=== PATIENT | male | born 1955 | race Two or more races ===

== ENCOUNTER 2024-06-23 01:59 | Emergency (ER) | payer MEDICARE, MEDICAID ==
[~2024-06-23] VITALS: Ht 193 cm; Wt 68.0 kg
[2024-06-23 02:13] VITALS: BP 147/69; PULSE 92; RESP 20; O2SAT 97
--- NOTE | 2024-06-23 02:22 | ED.PDOC ---
History of Present Illness HPI Comments 68 y/o M, with a Hx of lung CA and tobacco cigarette use, presents with c/o abnormal labs, today. Patient is a poor historian and endorses on being referred to come to the ED by his PCP, yesterday, due to recent blood-lab work showing elevated WBC. Patient also states on having to missed his scheduled chemotherapy appointment, yesterday, as well, due to his PCP advising against. He endorses on having no symptoms, currently, at time of initial assessment and evaluation. Chief Complaint: Abnormal LAB's Time Seen by MD: 02:00 Reviewed Notes: Nurses Notes, Medications, Allergies Allergies: Coded Allergies: NO KNOWN ALLERGIES (Unverified , 06/23/24) Information Source: Patient Mode of Arrival: Ambulatory Severity: Moderate Timing: Hours Duration: Since onset Prehospital treatment: None Past Medical History PAST MEDICAL HISTORY: Cancer (lung CA), DM, High Lipids, HTN Past Medical History (Other): hiatal hernia, current Surgical History: Denies all surgeries Family History Family History: Unknown Social History Smoker: Cigarettes Alcohol: Denies ETOH Use Drugs: Denies Drug Use Lives In: Home Hematologic/Lymphatic: reports: others (abnormal labs ) All Other Systems: Reviewed and Negative (negative unless otherwise stated above or in HPI) Physical Exam General Appearance: No Apparent Distress, Normal HEENT: Normal ENT Inspection, Pharynx Normal, TMs Normal Neck: Full Range of Motion, Non-Tender, Normal, Normal Inspection Respiratory: Chest Non-Tender, Lungs Clear, No Accessory Muscle Use, No Respiratory Distress, Normal Breath Sounds Cardiovascular: No Edema, No JVD, No Murmur, No Gallop, Normal Peripheral Pulses, Regular Rate/Rhythm Breast Exam: Deferred Gastrointestinal: No Organomegaly, Non Tender, No Pulsatile Mass, Normal Bowel Sounds, Soft Genitalia: Deferred Pelvic: Deferred Rectal: Deferred Extremities: No calf tenderness, Normal capillary refill, Normal inspection, Normal range of motion, Non-tender, No pedal edema Musculoskeletal : Apperance: Normal Neurologic: Alert, hemodialysis patient care specialist II-XII nml as Tested, No Motor Deficits, Normal Affect, Normal Mood, No Sensory Deficits Cerebellar Function: Normal Reflexes: Normal Skin: Dry, Normal Color, Warm Lymphatic: No Adenopathy Was a procedure done? Was a procedure done?: No Differential Dx Considerations may include: leukocytosis, abnormal labs X-Ray, Labs, Meds, VS Vital Signs Date Time Temp Pulse Resp B/P (MAP) Pulse Ox O2 Delivery O2 Flow Rate FiO2 06/23/24 02:13 97.5 92 20 147/69 (95) 97 Lab Test 06/23/24 02:17 Range/Units White Blood Count 10.3 4.4-10.8 10^3/uL Red Blood Count 3.37 L 4.5-5.90 10^6/uL Hemoglobin 8.2 L 13.5-17.5 g/dL Hematocrit 26.2 L 41.0-53.0 % Mean Corpuscular Volume 77.8 L 80.0-100.0 fL Mean Corpuscular Hemoglobin 24.2 L 28.0-32.0 pg Mean Corpuscular Hemoglobin Concent 31.1 L 32.0-36.0 g/dL Red Cell Distribution Width 18.7 H 11.8-14.3 % Platelet Count 307 140-450 10^3/uL Mean Platelet Volume 6.8 L 6.9-10.8 fL Neutrophils (%) (Auto) 75.9 37.0-80.0 % Lymphocytes (%) (Auto) 14.6 10.0-50.0 % Monocytes (%) (Auto) 7.2 0.0-12.0 % Eosinophils (%) (Auto) 1.5 0.0-7.0 % Basophils (%) (Auto) 0.8 0.0-2.0 % Neutrophils # (Auto) 7.8 1.6-8.6 10 ^3/uL Lymphocytes # (Auto) 1.5 0.4-5.4 10 ^3/uL Monocytes # (Auto) 0.7 0-1.3 10 ^3/uL Eosinophils # (Auto) 0.2 0-0.8 10 ^3/uL Basophils # (Auto) 0.1 0-0.2 10 ^3/uL Nucleated Red Blood Cells 0.0 % Sodium Level 136 136-145 mmol/L Potassium Level 4.8 3.5-5.1 mmol/L Chloride Level 102 98-107 mmol/L Carbon Dioxide Level 27 20-31 mmol/L Anion Gap 7 5-15 Blood Urea Nitrogen 19 9-23 mg/dL Creatinine 0.80 0.700-1.30 mg/dL Glomerular Filtration Rate Calc 96 >90 mL/min BUN/Creatinine Ratio 23.8 H 10.0-20.0 Serum Glucose 143 H 74-106 mg/dL Lactic Acid Level 1.8 0.4-2.0 mmol/L Calcium Level 9.6 8.7-10.4 mg/dL Troponin I High Sensitivity 6 </=54 ng/L B-Type Natriuretic Peptide 125.39 0-100 pg/mL [place] [id number] Ph: [phone] DIAGNOSTIC IMAGING Diagnostic Imaging Report : [id number] Signed PATIENT: JORGE LUIS CORCORAN ACCT: [id number] UNIT: [id number] : 1955 LOC: ER ROOM / BED: / AGE / SEX: 68 / M ADM STATUS: REG ER SERVICE 4 ORDERING PHYSICIAN: BENITA BUSTILLO MD PROCEDURE(s): CXR2 - CHEST TWO VIEWS ROUTINE REASON: cough ORDER NUMBER(s): [id number], ACCESSION NUMBER(s): [id number] Examination: CXR2 CLINICAL INDICATION: cough DIREAS;Reason for Exam: Ambulatory;Ambulatory;Modes of Transportation DITRANS;How is patient transported? Comparison: None. Technique: Two views of the chest were obtained. Findings: Mildly hyperinflated and hyperlucent both lungs, suggestive of chronic obstructive pulmonary disease. No obvious pleural effusion on either side in current study. There is no pneumothorax. No evidence of cardiomegaly. Aortic knob calcification noted. Degenerative changes in the thoracic spine. No acute osseous abnormality is seen. Impression: 1. Chronic obstructive pulmonary disease. 2. Advised further evaluation with CT chest without contrast if clinically indicated. Electronically Signed 06/23/2024 03:19 Satya Macdonald ATED BY: SHAYY MARIE MD DICTATED DATE/TIME: 06/23/24318 SIGNED BY: SHAYY MARIE MD SIGNED DATE/TIME: 06/23/24318 CC: Time of 1ST Reevaluation: 02:30 Reevaluation 1ST: Unchanged Patient Education/Counseling: Diagnosis, Treatment Family Education/Counseling: No Family Present Departure 1 Departure Time of Disposition: 03:37 (Patient's workup is benign with normal labs. We will discharge patient home with outpatient follow up) Impression: Primary Impression: Encounter for blood test Disposition: HOME / SELF CARE / HOMELESS Condition: Stable Additional Instructions: Your workup today was benign including normal labs. Your white count today was 10.3. You can take Tylenol or Motrin as needed for pain. You should follow up with your regular doctor within 1 week. You should stay well rested and well hydrated. If your symptoms worsen or you have any other concerns please return to the emergency room. Discharged With: Self, Dry Cleaner Presser Critical Care Note Critical Care Time?: No Stability Stability form required: No Heart Score Heart Score: Heart Score Response (Comments) Value History N/A 0 EKG N/A 0 Age N/A 0 Risk Factors N/A 0 Troponin N/A 0 Total 0 I personally scribed for BENITA BUSTILLO MD ([email or web address]) on 06/23/24 at 02:22. Electronically submitted by Vaibhav Iglesias ([email or web address]). I personally scribed for BENITA BUSTILLO MD ([email or web address]) on 06/23/24 at 03:37. Electronically submitted by Vaibhav Iglesias ([email or web address]). BENITA BUSTILLO MD Jun 23, 2024 02:22
[2024-06-23 02:45] LABS: Basophils # (auto) 0.1 10 ^3/uL (0-0.2); Basophils % (auto) 0.8 % (0.0-2.0); Eosinophils # (auto) 0.2 10 ^3/uL (0-0.8); Eosinophils % (auto) 1.5 % (0.0-7.0); Hematocrit 26.2 % (41.0-53.0); Hemoglobin 8.2 g/dL (13.5-17.5); Lymphocytes # (auto) 1.5 10 ^3/uL (0.4-5.4); Lymphocytes % (auto) 14.6 % (10.0-50.0); Mean Corpuscular Hemoglobin 24.2 pg (28.0-32.0); Mean Corpuscular Hgb Conc. 31.1 g/dL (32.0-36.0); Mean Corpuscular Volume 77.8 fL (80.0-100.0); Monocytes # (auto) 0.7 10 ^3/uL (0-1.3); Monocytes % (auto) 7.2 % (0.0-12.0); Neutrophils # (auto) 7.8 10 ^3/uL (1.6-8.6); Neutrophils % (auto) 75.9 % (37.0-80.0); Platelet Count (auto) 307 10^3/uL (140-450); Red Blood Cells 3.37 10^6/uL (4.5-5.90); Red Cell Distribution Width 18.7 % (11.8-14.3); White Blood Cell 10.3 10^3/uL (4.4-10.8)
[2024-06-23 02:56] LABS: Chloride 102 mmol/L (98-107); Potassium 4.8 mmol/L (3.5-5.1); Sodium 136 mmol/L (136-145)
[2024-06-23 02:57] LABS: Anion Gap 7 (5-15); Calcium 9.6 mg/dL (8.7-10.4); Carbon Dioxide 27 mmol/L (20-31)
[2024-06-23 03:02] LABS: BUN/Creatinine Ratio 23.8 (10.0-20.0); Blood Urea Nitrogen 19 mg/dL (9-23)
--- NOTE | 2024-06-23 03:21 | DVH ---
Examination: CXR2 CLINICAL INDICATION: cough DIREAS;Reason for Exam: Ambulatory;Ambulatory;Modes of Transportation DITR ANS;How is patient transported? Comparison: None. Technique: Two views of the chest were obtained. Findings: Mildly hyperinflated and hyperlucent both lungs, suggestive of chronic obstructive pulmonary disease. No obvious pleural effusion on either side in current study. There is no pneumothorax. No evidence of cardiomegaly. Aortic knob calcification noted. Degenerative changes in the thoracic spine. No acute osseous abnormality is seen. Impression: 1. Chronic obstructive pulmonary disease. 2. Advised further evaluation with CT chest without contrast if clinically indicated. Electronically Signed 06/23/2024 03:19 Satya Macdonald
[2024-06-23 03:23] LABS: Glucose 143 mg/dL (74-106)
== END 2024-06-23 03:46 | disposition home or self-care (01) ==
LOC: ER 01:59
DX: R79.1 Abnormal coagulation profile (principal); I10 Essential (primary) hypertension; E11.9 Type 2 diabetes mellitus without complications; J44.9 Chronic obstructive pulmonary disease, unspecified; F17.210 Nicotine dependence, cigarettes, uncomplicated; E78.5 Hyperlipidemia, unspecified; Z85.118 Personal history of other malignant neoplasm of bronchus and lung
CPT/HCPCS: 36415; 71046; 80048; 83605; 83880; 84484; 85025; 87040

== ENCOUNTER 2025-03-15 11:03 | Inpatient (IN) | payer MEDICARE, MEDICAID ==
[~2025-03-15] VITALS: Ht 182.9 cm; Wt 65.0 kg
[2025-03-15 11:20] VITALS: PULSE 87; RESP 26; O2SAT 98
--- NOTE | 2025-03-15 12:21 | ED.PDOC ---
History of Present Illness HPI Comments 69 year old male with PMHx HTN, DM, HLD, lung and throat cancer stage 4, presents to the ED with a chief compliant of suprapubic pain onset last night. Per EMS, patient began experiencing sharp suprapubic pain since last night, pain worsened this morning. Patient was told he had inguinal hernia, has not been seen by surgeon, rates pain 03/04. Patient is a poor historian due to pain. No other symptoms or modifying factors present at this time. Chief Complaint: Abdominal Pain Time Seen by MD: 12:05 Reviewed Notes: Medications, Allergies Allergies: Coded Allergies: NO KNOWN ALLERGIES (Unverified , 06/23/24) Information Source: Patient, Emergency Med Personnel Mode of Arrival: EMS Severity: Moderate Timing: Hours Duration: Since onset Prehospital treatment: None Past Medical History PAST MEDICAL HISTORY: Cancer, DM, High Lipids, HTN Surgical History: Denies all surgeries Family History Family History: Unknown Social History Smoker: Cigarettes Alcohol: Denies ETOH Use Drugs: Denies Drug Use Lives In: Home Constitutional: denies: chills, diaphoresis, fatigue, fever, malaise, sweats, weakness, others EENTM: denies: blurred vision, double vision, ear bleeding, ear discharge, ear drainage, ear pain, ear ringing, eye pain, eye redness, hearing loss, mouth pain, mouth swelling, nasal discharge, nose bleeding, nose congestion, nose pain, photophobia, tearing, throat pain, throat swelling, voice changes, others Respiratory: denies: cough, hemoptysis, orthopnea, SOB at rest, shortness of breath, SOB with excertion, stridor, wheezing, others Cardiovascular: denies: chest pain, dizzy spells, diaphoresis, Dyspnea on exertion, edema, irregular heart beat, left arm pain, lightheadedness, palpitations, PND, syncope, others Gastrointestinal: denies: abdomen distended, abdominal pain, blood streaked bowels, constipated, diarrhea, dysphagia, difficulty swallowing, hematemesis, melena, nausea, poor appetite, poor fluid intake, rectal bleeding, rectal pain, vomiting, others Genitourinary: reports: others (suprapubic pain); denies: burning, dysuria, flank pain, frequency, hematuria, incontinence, penile discharge, penile sore, pain, testicle pain, testicle swelling, urgency Neurological: denies: dizziness, fainting, headache, left sided numbness, left sided weakness, numbness, paresthesia, pre-existing deficit, right sided numbness, right sided weakness, seizure, speech problems, tingling, tremors, weakness, others Musculoskeletal: denies: back pain, gout, joint pain, joint swelling, muscle pain, muscle stiffness, neck pain, others Integumetry: denies: bruises, change in color, change in hair/nails, dryness, laceration, lesions, lumps, rash, wounds, others Allergic/Immunocompromised: denies: Difficulty Healing, Frequent Infections, Hives, Itching, others Hematologic/Lymphatic: denies: anemia, blood clots, easy bleeding, easy bruising, swollen glands, others Endocrine: denies: excessive hunger, excessive sweating, excessive thirst, excessive urination, flushing, intolerance to cold, intolerance to heat, unexplained weight gain, unexplained weight loss, others Psychiatric: denies: anxiety, bipolar disorder, depression, hopeless, panic dis order, schizophrenia, sleepless, suicidal, others All Other Systems: Reviewed and Negative Physical Exam General Appearance: Moderate Distress, Normal HEENT: Normal ENT Inspection, Pharynx Normal, TMs Normal Neck: Full Range of Motion, Non-Tender, Normal, Normal Inspection Respiratory: Chest Non-Tender, Lungs Clear, No Accessory Muscle Use, No Respiratory Distress, Normal Breath Sounds Cardiovascular: No Edema, No JVD, No Murmur, No Gallop, Normal Peripheral Pulses, Regular Rate/Rhythm Breast Exam: Deferred Gastrointestinal: No Organomegaly, Non Tender, No Pulsatile Mass, Normal Bowel Sounds, Soft Genitalia: Deferred Pelvic: Deferred Rectal: Deferred Extremities: No calf tenderness, Normal capillary refill, Normal inspection, Normal range of motion, Non-tender, No pedal edema Musculoskeletal : Apperance: Normal Neurologic: Alert, mangle operator garments II-XII nml as Tested, No Motor Deficits, Normal Affect, Normal Mood, No Sensory Deficits Cerebellar Function: Normal Reflexes: Normal Skin: Dry, Normal Color, Warm Lymphatic: No Adenopathy Was a procedure done? Was a procedure done?: No Differential Dx Considerations may include: Acute appendicitis, diverticulitis, and strangulated hernia, perforated bowel X-Ray, Labs, Meds, VS Vital Signs Date Time Temp Pulse Resp B/P (MAP) Pulse Ox O2 Delivery O2 Flow Rate FiO2 03/15/25 15:00 92 21 123/74 (90) 98 03/15/25 14:00 97.1 92 21 104/66 (79) 98 97.1 03/15/25 13:45 90 26 104/66 03/15/25 13:29 91 26 110/71 03/15/25 13:00 97.0 85 21 110/71 (84) 98 97.0 03/15/25 12:31 91 26 107/73 03/15/25 12:00 97.9 87 21 107/73 (84) 98 97.9 03/15/25 11:20 87 26 98 Room Air* 0 21 03/15/25 11:20 97.9 87 26 98/66 (77) 98 97.9 03/15/25 11:13 97.9 86 20 117/80 98 97.9 Lab Test 03/15/25 14:44 03/15/25 12:47 Range/Units Lactic Acid Level 3.7 *H 3.6 *H 0.4-2.0 mmol/L White Blood Count 3.1 L 4.4-10.8 10^3/uL Red Blood Count 4.39 L 4.5-5.90 10^6/uL Hemoglobin 10.2 L 13.5-17.5 g/dL Hematocrit 33.9 L 41.0-53.0 % Mean Corpuscular Volume 77.4 L 80.0-100.0 fL Mean Corpuscular Hemoglobin 23.3 L 28.0-32.0 pg Mean Corpuscular Hemoglobin Concent 30.1 L 32.0-36.0 g/dL Red Cell Distribution Width 19.0 H 11.8-14.3 % Platelet Count 321 140-450 10^3/uL Mean Platelet Volume 7.6 6.9-10.8 fL Neutrophils (%) (Auto) 64.6 37.0-80.0 % Lymphocytes (%) (Auto) 23.7 10.0-50.0 % Monocytes (%) (Auto) 11.3 0.0-12.0 % Eosinophils (%) (Auto) 0.2 0.0-7.0 % Basophils (%) (Auto) 0.2 0.0-2.0 % Neutrophils # (Auto) 2.0 1.6-8.6 10 ^3/uL Lymphocytes # (Auto) 0.7 0.4-5.4 10 ^3/uL Monocytes # (Auto) 0.4 0-1.3 10 ^3/uL Eosinophils # (Auto) 0 0-0.8 10 ^3/uL Basophils # (Auto) 0 0-0.2 10 ^3/uL Nucleated Red Blood Cells 0.5 % Sodium Level 132 L 136-145 mmol/L Potassium Level 3.3 L 3.5-5.1 mmol/L Chloride Level 100 98-107 mmol/L Carbon Dioxide Level 20 20-31 mmol/L Anion Gap 12 5-15 Blood Urea Nitrogen 26 H 9-23 mg/dL Creatinine 0.86 0.700-1.30 mg/dL Glomerular Filtration Rate Calc 94 >90 mL/min BUN/Creatinine Ratio 30.2 H 10.0-20.0 Serum Glucose 255 H 74-106 mg/dL Calcium Level 8.7 8.7-10.4 mg/dL Total Bilirubin < 0.2 L 0.2-1.0 mg/dL Aspartate Amino Transferase (AST) 16 13-40 U/L Alanine Aminotransferase (ALT) 17 7-40 U/L Alkaline Phosphatase 174 H 46-116 U/L Total Protein 7.2 5.7-8.2 g/dL Albumin 3.4 3.2-4.8 g/dL Lipase 22 12-53 U/L Current Medications Medications (Trade) Dose Ordered Sig/Celia Route Start Time Stop Time Status Last Admin Sodium Chloride 1,000 ml @ 1,000 mls/hr Q1H ONCE IV 03/15/25 12:30 03/15/25 13:29 DC 03/15/25 12:31 Ondansetron HCl (Zofran) 4 mg ONCE ONCE IV 03/15/25 12:30 03/15/25 12:31 DC 03/15/25 12:31 Hydromorphone HCl (Dilaudid Injection) 1 mg ONCE ONCE IV 03/15/25 12:30 03/15/25 12:31 DC 03/15/25 12:31 Hydromorphone HCl (Dilaudid Injection) 1 mg ONCE ONCE IV 03/15/25 13:00 03/15/25 13:01 DC 03/15/25 13:29 Cefazolin Sodium/ Dextrose 50 ml @ 50 mls/hr ONCE ONCE IV 03/15/25 13:45 03/15/25 14:44 DC 03/15/25 13:45 Metronidazole 100 ml @ 100 mls/hr ONCE ONCE IV 03/15/25 13:45 03/15/25 14:44 DC 03/15/25 13:45 Sodium Chloride 2,350 ml @ 2,350 mls/hr ONCE ONCE IV 03/15/25 13:45 03/15/25 14:44 DC 03/15/25 14:08 Hydromorphone HCl (Dilaudid Injection) 1 mg ONCE ONCE IV 03/15/25 13:45 03/15/25 13:57 DC 03/15/25 13:45 Ondansetron HCl (Zofran) 4 mg ONCE ONCE IV 03/15/25 13:45 03/15/25 13:58 DC 03/15/25 13:45 Time of 1ST Reevaluation: 12:35 Reevaluation 1ST: Unchanged Time of 2ND Reevaluation: 15:42 (Discussed the case with Dr. Lopze who will discuss with Dr. Oconnor and take patient for surgery. ) Patient Education/Counseling: Diagnosis, Treatment, Prognosis Family Education/Counseling: No Family Present SEPSIS Sepsis Screen Date sepsis recognized/suspect: Mar 15, 2025 Time Sepsis recognized/suspect: 1119 Recent Procedure: No On Antibiotic Therapy: No Respiratory Rate >20: Yes Heart Rate >90: No Temp<36 C (96.8 F) or >38.3 C: No SBP <90 or MAP <65 mmHG: No New Acute Mental Status Change: No Is the patient on CPAP, BIPAP,: No Physician Orders Chest Portable (03/15/25 12:17) Ct Ab Pel With Iv Con Only (03/15/25 12:17) Blood Culture (03/15/25 12:17) Ng/Orogastric Tube To Lis (03/15/25 15:39) * Surgical Consult (03/15/25 ) Vital Signs Date Time Temp Pulse Resp B/P (MAP) Pulse Ox O2 Delivery O2 Flow Rate FiO2 03/15/25 15:00 92 21 123/74 (90) 98 03/15/25 14:00 97.1 92 21 104/66 (79) 98 97.1 03/15/25 13:45 90 26 104/66 03/15/25 13:29 91 26 110/71 03/15/25 13:00 97.0 85 21 110/71 (84) 98 97.0 03/15/25 12:31 91 26 107/73 03/15/25 12:00 97.9 87 21 107/73 (84) 98 97.9 03/15/25 11:20 87 26 98 Room Air* 0 21 03/15/25 11:20 97.9 87 26 98/66 (77) 98 97.9 03/15/25 11:13 97.9 86 20 117/80 98 97.9 Laboratory Tests Test 03/15/25 12:47 03/15/25 14:44 Lactic Acid Level 3.6 mmol/L (0.4-2.0) *H 3.7 mmol/L (0.4-2.0) *H White Blood Count 3.1 10^3/uL (4.4-10.8) L Medications Medications Dose Ordered Sig/Celia Route Start Time Stop Time Status Last Admin Dose Admin Cefazolin Sodium/ Dextrose 50 ml @ 50 mls/hr ONCE ONCE IV 03/15/25 13:45 03/15/25 14:44 DC 03/15/25 13:45 Hydromorphone HCl 1 mg ONCE ONCE IV 03/15/25 12:30 03/15/25 12:31 DC 03/15/25 12:31 Hydromorphone HCl 1 mg ONCE ONCE IV 03/15/25 13:00 03/15/25 13:01 DC 03/15/25 13:29 Hydromorphone HCl 1 mg ONCE ONCE IV 03/15/25 13:45 03/15/25 13:57 DC 03/15/25 13:45 Metronidazole 100 ml @ 100 mls/hr ONCE ONCE IV 03/15/25 13:45 03/15/25 14:44 DC 03/15/25 13:45 Ondansetron HCl 4 mg ONCE ONCE IV 03/15/25 12:30 03/15/25 12:31 DC 03/15/25 12:31 Ondansetron HCl 4 mg ONCE ONCE IV 03/15/25 13:45 03/15/25 13:58 DC 03/15/25 13:45 Sodium Chloride 1,000 ml @ 1,000 mls/hr Q1H ONCE IV 03/15/25 12:30 03/15/25 13:29 DC 03/15/25 12:31 Sodium Chloride 2,350 ml @ 2,350 mls/hr ONCE ONCE IV 03/15/25 13:45 03/15/25 14:44 DC 03/15/25 14:08 Departure 1 Departure Time of Disposition: 15:41 (Patient presented with abdominal pain that was concerning for possible appendicits, gastritis, cholecystitis, colitis, gastroenteritis, sbo, or orther possible surgical emergency. Data: 1. I ordered and reviewed the result of at least 3 labs including a CBC, BMP, and Urinalysis. 2. I independently interpreted the following tests: CT Abdomen and Pelvis is concerning for perforated bowel .Risk:This patient has a high risk of morbidity due to further diagnostic testing or treatment and may suffer from an acute abdominal process disorder. Workup reveals perforated bowel and patient should be admitted for further workup. and possible expert consultation. ) Impression: Primary Impression: Perforated bowel Additional Impression: Intractable abdominal pain Disposition: ADMITTED INPATIENT Admit to: ICU Condition: Critical Critical Care Note Critical Care Time?: No Stability Stability form required: No Heart Score Heart Score: Heart Score Response (Comments) Value History N/A 0 EKG N/A 0 Age N/A 0 Risk Factors N/A 0 Troponin N/A 0 Total 0 I personally scribed for BENITA BUSTILLO MD ([email or web address]) on 03/15/25 at 12:21. Electronically submitted by Gaye Moore ([email or web address]). I personally scribed for BENITA BUSTILLO MD ([email or web address]) on 03/15/25 at 13:42. Electronically submitted by Gaye Moore ([email or web address]). BENITA BUSTILLO MD Mar 15, 2025 12:21
[2025-03-15] MEDS: SODIUM CHLORIDE 0.9% 1,000 ML IV ONE (12:31)
[2025-03-15] MEDS: ONDANSETRON HCL 4 MG/2 ML VIAL IV ONE ×2 (12:31→13:45)
[2025-03-15] MEDS: HYDROmorphone HCL 2 MG/ML VL/or syr IV ONE ×3 (12:31→13:45)
--- NOTE | 2025-03-15 12:46 | DVH ---
CHEST RADIOGRAPH Indication: abdominal pain Technique: Single frontal view of the chest was obtained Comparison: None FINDINGS: Lines and Tubes: Appears to be bandaging or brace traversing the chest correlate clinically Lungs: No focal consolidation. Pleura: No effusion. No pneumothorax. Cardiomediastinal contours: Unremarkable Bones: Elevation of the left shoulder. May be positional. IMPRESSION: 1. No acute cardiopulmonary disease. 2. Elevation of the left shoulder 3. Questionable bandaging or brace traversing chest. 4. Can not exclude pneumoperitoneum if possibility of is of clinical concern recommend CT abdomen and pelvis.
[2025-03-15 13:15] LABS: Hematocrit 33.9 % (41.0-53.0); Hemoglobin 10.2 g/dL (13.5-17.5); Mean Corpuscular Hemoglobin 23.3 pg (28.0-32.0); Mean Corpuscular Volume 77.4 fL (80.0-100.0); Nucleated Red Blood Cells % 0.5 %
[2025-03-15 13:26] LABS: Alanine Aminotransferase 17 U/L (7-40); Albumin 3.4 g/dL (3.2-4.8); Anion Gap 12 (5-15); BUN/Creatinine Ratio 30.2 (10.0-20.0); Carbon Dioxide 20 mmol/L (20-31); Chloride 100 mmol/L (98-107); Lipase 22 U/L (12-53); Total Protein 7.2 g/dL (5.7-8.2)
[2025-03-15 13:33] LABS: Alkaline Phosphatase 174 U/L (46-116); Bilirubin, Total < 0.2 mg/dL (0.2-1.0); Blood Urea Nitrogen 26 mg/dL (9-23); Calcium 8.7 mg/dL (8.7-10.4); Glucose 255 mg/dL (74-106); Potassium 3.3 mmol/L (3.5-5.1); Sodium 132 mmol/L (136-145)
[2025-03-15 13:37] LABS: Lactic Acid w/Reflex 3.6 mmol/L (0.4-2.0)
[2025-03-15] MEDS: ceFAZolin 2 GM/D5W50ml 50 ML IV ONE (13:45)
[2025-03-15] MEDS ORDERED: IOHEXOL 300 MG/ML 100ML BOTTLE IJ ONE (13:48)
[2025-03-15] MEDS: SODIUM CHLORIDE 0.9% 2,350 ML IV ONE (14:08)
[2025-03-15] MEDS: KETAMINE 50mg/ML 10ml Vial 10 ML ONE (15:25)
[2025-03-15] MEDS: KETAMINE 50mg/ML 10ml Vial (500mg/10ml) IV ONE (15:29)
--- NOTE | 2025-03-15 15:41 | DVH ---
CLINICAL HISTORY: abdominal pain TECHNIQUE: CT of the abdomen and pelvis was performed with IV contrast. This exam was performed accor ding to our departmental dose optimization program. Up-to-date CT equipment and radiation dose reduct ion techniques are utilized as appropriate. CTDI 7.6 DLP 463 COMPARISON: CT CHEST ABD PEL W on DOS: 02/26/24 FINDINGS: Abdomen/Pelvis: The spleen, pancreas, adrenal glands, kidneys, gallbladder, liver, bladder, and prostate gland are un remarkable. The abdominal aorta is normal in course and caliber. There are moderate atherosclerotic calcification s. There are a few foci of free intraperitoneal air adjacent to the liver and along the falciform ligame nt. There is a small amount of ascites in the peritoneal cavity. There is trace hyperdense material l ayering within ascites within the deep pelvis. There is ulceration lung the medial margin of the stomach measuring 2.5 x 1.4 cm. This is best seen o n images 27-39 series 2. There is diffuse gastric fold thickening. There is no enlarged abdominal or pelvic lymph node. There is a very large left inguinal hernia containing ascitic fluid and loops of nonobstructed small bowel. Other: The imaged lower thorax demonstrates 3-vessel coronary artery calcifications. There are centrilobular emphysematous change. No acute osseous abnormality is evident. There is a partially imaged right medial thigh intramuscular lipomatous lesion measuring at least 3.6 cm. IMPRESSION: Findings compatible with perforated bowel with ruptured stomach ulcer as suspected cause. Large left inguinal hernia containing ascitic fluid and loops of nonobstructed small bowel. Partially imaged 3.6 cm intramuscular lipomatous lesion within the right medial thigh musculature. 3-vessel coronary artery calcifications. Centrilobular emphysema. FINDINGS AND INTERPRETATION DISCUSSED WITH DR BUSTILLO AT DATE AND TIME 03/15/2025 03:37 PM
[2025-03-15] MEDS: LORazepam 2MG/ML-1ML VIAL IV PRN (16:12)
[2025-03-15] MEDS: HYDROMORPHONE HCL 1 MG/ML INJ ONE (16:12)
--- NOTE | 2025-03-15 16:13 | DVHINCON2 ---
Consultation - Surgical Date Seen: Mar 15, 2025 Referring Physician Referring Physician er Reason for Consultation acute abdomen History of Present Illness History of Present Illness 69 year old male with PMHx HTN, DM, HLD, lung and throat cancer stage 4, presen ts to the ED with a chief compliant of suprapubic pain onset last night. Per EMS, patient began experiencing sharp suprapubic pain since last night, pain worsened this morning. Patient was told he had inguinal hernia, has not been seen by surgeon, rates pain 03/04. Patient is a poor historian due to pain. No other symptoms or modifying factors present at this time. Past Medical/Surgical History Past Medical/Surgical History HTN, DM, HLD, lung and throat cancer stage 4, Family and Social History Family and Social History Smoker Allergies and medications Allergies: Coded Allergies: NO KNOWN ALLERGIES (Unverified , 06/23/24) Review of systems Review of Systems: HEENT:Normal, CVS:Abnormal, RESPIRATORY:Abnormal, GI:Abnormal, :Normal, MSK:Abnormal Examination Vital signs Vital Signs Date Time Temp Pulse Resp B/P (MAP) Pulse Ox O2 Delivery O2 Flow Rate FiO2 03/15/25 15:00 92 21 123/74 (90) 98 03/15/25 14:00 97.1 97.1 03/15/25 11:20 Room Air* 0 21 Laboratory Labs Test 03/15/25 14:44 03/15/25 12:47 Range/Units Lactic Acid Level 3.7 *H 0.4-2.0 mmol/L White Blood Count 3.1 L 4.4-10.8 10^3/uL Red Blood Count 4.39 L 4.5-5.90 10^6/uL Hemoglobin 10.2 L 13.5-17.5 g/dL Hematocrit 33.9 L 41.0-53.0 % Mean Corpuscular Volume 77.4 L 80.0-100.0 fL Mean Corpuscular Hemoglobin 23.3 L 28.0-32.0 pg Mean Corpuscular Hemoglobin Concent 30.1 L 32.0-36.0 g/dL Red Cell Distribution Width 19.0 H 11.8-14.3 % Platelet Count 321 140-450 10^3/uL Mean Platelet Volume 7.6 6.9-10.8 fL Neutrophils (%) (Auto) 64.6 37.0-80.0 % Lymphocytes (%) (Auto) 23.7 10.0-50.0 % Monocytes (%) (Auto) 11.3 0.0-12.0 % Eosinophils (%) (Auto) 0.2 0.0-7.0 % Basophils (%) (Auto) 0.2 0.0-2.0 % Neutrophils # (Auto) 2.0 1.6-8.6 10 ^3/uL Lymphocytes # (Auto) 0.7 0.4-5.4 10 ^3/uL Monocytes # (Auto) 0.4 0-1.3 10 ^3/uL Eosinophils # (Auto) 0 0-0.8 10 ^3/uL Basophils # (Auto) 0 0-0.2 10 ^3/uL Nucleated Red Blood Cells 0.5 % Sodium Level 132 L 136-145 mmol/L Potassium Level 3.3 L 3.5-5.1 mmol/L Chloride Level 100 98-107 mmol/L Carbon Dioxide Level 20 20-31 mmol/L Anion Gap 12 5-15 Blood Urea Nitrogen 26 H 9-23 mg/dL Creatinine 0.86 0.700-1.30 mg/dL Glomerular Filtration Rate Calc 94 >90 mL/min BUN/Creatinine Ratio 30.2 H 10.0-20.0 Serum Glucose 255 H 74-106 mg/dL Calcium Level 8.7 8.7-10.4 mg/dL Total Bilirubin < 0.2 L 0.2-1.0 mg/dL Aspartate Amino Transferase (AST) 16 13-40 U/L Alanine Aminotransferase (ALT) 17 7-40 U/L Alkaline Phosphatase 174 H 46-116 U/L Total Protein 7.2 5.7-8.2 g/dL Albumin 3.4 3.2-4.8 g/dL Lipase 22 12-53 U/L Examination: GENERAL:Abnormal, NECK:Abnormal (Neck mass with tracheal deviation to the left), CVS:Abnormal, ABDOMEN:Abnormal (Rebound and guarding diffuse abdominal tenderness), MSK:Normal Problem List/Assessment/Plan Problems: (1) Intractable abdominal pain Assessment and Plan Patient with metastatic lung and throat cancer with a acute abdomen and CAT scan findings consistent with perforated stomach. Patient is in intractable abdominal pain at this point in time after long discussion with the patient he is understanding of the risks of surgery and need for probable tracheostomy and long-term ventilation with mechanical ventilation. This is not what he wishes he would like to be made comfort care which we agreed upon. He has made DNR at this point and we will need given comfort medications Plan discussed with Plan discussed with: Patient Visit Coding Surgery Date of Service if different f: Mar 15, 2025 Billing Provider: TORRES HAQ Jr., MD Surgery Visit Codes: [id number] - INP CONSULT <80 MIN TORRES HAQ Jr., MD Mar 15, 2025 16:13
[2025-03-15] MEDS ORDERED: ONDANSETRON HCL 4 MG/2 ML VIAL IV PRN (16:15)
[2025-03-15] MEDS: LORazepam 2MG/ML-1ML VIAL ONE (16:17)
--- NOTE | 2025-03-15 16:36 | DVHHP2 ---
History of Present Illness Reason for Visit: Abdominal pain History of Present Illness Avery Valles is a 69-year-old male with past medical history of hypertension, hyperlipidemia, diabetes, and stage 4 throat and lung cancer, who came to the hospital for abdominal pain. Patient states his pain began last night. It continued to worsen throughout the night and morning prompting him to come to the hospital. CT of abdomen showed perforated stomach. Surgical consult was initiated by ER provider. Upon my arrival to bedside Dr. Syed was at the bedside speaking with the patient regarding risk of surgery and POC. Patient has chosen to be made comfort care and we agreed with that. Patient will be made a DNR and given comfort medications. Cardiovascular: HTN Heme/Onc: Cancer (stage 4 lung and throat) Endocrine: Diabetes Past Surgical History: Other (Port acath) Smoke: <1 pack per day ALCOHOL: none Drugs: None Lives: Other (caregiver) Review of Systems Constitutional: No: Fever, Chills, Sweats, Weakness, Malaise, Other Eyes: No: Pain, Vision change, Conjunctivae inflammation, Eyelid inflammation, Other, Redness ENT: No: Ear pain, Ear discharge, Nose pain, Nose discharge, Nose congestion, Mouth pain, Mouth swelling, Throat pain, Throat swelling, Other Respiratory: No: Cough, Dry, Shortness of breath, SOB with excertion, Wheezing, Hemoptysis, Pleuritic Pain, Sputum, Wheezing, Other Cardiovascular: No: Chest Pain, Palpitations, Orthopnea, Paroxysmal Noc. Dyspnea, Edema, Lt Headedness, Other Gastrointestinal: Nausea, Abdominal Pain; No: Vomiting, Diarrhea, Constipation, Melena, Hematochezia, Other Genitourinary: No Dysuria, No Frequency, No Incontinence, No Hematuria, No Retention, No Other Musculoskeletal: No: other, neck pain, shoulder pain, arm pain, back pain, hand pain, leg pain, foot pain Skin: No: Rash, Lesions, Jaundice, Bruising, Other Allergies: Coded Allergies: NO KNOWN ALLERGIES (Unverified , 06/23/24) Exam Vital Signs Vital Signs Date Time Temp Pulse Resp B/P (MAP) Pulse Ox O2 Delivery O2 Flow Rate FiO2 03/15/25 15:00 92 21 123/74 (90) 98 03/15/25 14:00 97.1 97.1 03/15/25 11:20 Room Air* 0 21 General Appearance: Alert, Oriented X3, Cooperative, severe distress Respiratory: Clear to auscultation, Normal air movement Cardiovascular: Regular rate, Normal S1, Normal S2 Abdominal: Other (Severe pain and tenderness) Extremities: No clubbing, No cyanosis, No edema, Normal pulses Skin: No rashes, No breakdown, No significant lesion Neuro: Normal gait, Normal speech Psych/Mental Status: Mental status NL, Mood NL Labs/Xrays Labs Test 03/15/25 14:44 03/15/25 12:47 Range/Units Lactic Acid Level 3.7 *H 0.4-2.0 mmol/L White Blood Count 3.1 L 4.4-10.8 10^3/uL Red Blood Count 4.39 L 4.5-5.90 10^6/uL Hemoglobin 10.2 L 13.5-17.5 g/dL Hematocrit 33.9 L 41.0-53.0 % Mean Corpuscular Volume 77.4 L 80.0-100.0 fL Mean Corpuscular Hemoglobin 23.3 L 28.0-32.0 pg Mean Corpuscular Hemoglobin Concent 30.1 L 32.0-36.0 g/dL Red Cell Distribution Width 19.0 H 11.8-14.3 % Platelet Count 321 140-450 10^3/uL Mean Platelet Volume 7.6 6.9-10.8 fL Neutrophils (%) (Auto) 64.6 37.0-80.0 % Lymphocytes (%) (Auto) 23.7 10.0-50.0 % Monocytes (%) (Auto) 11.3 0.0-12.0 % Eosinophils (%) (Auto) 0.2 0.0-7.0 % Basophils (%) (Auto) 0.2 0.0-2.0 % Neutrophils # (Auto) 2.0 1.6-8.6 10 ^3/uL Lymphocytes # (Auto) 0.7 0.4-5.4 10 ^3/uL Monocytes # (Auto) 0.4 0-1.3 10 ^3/uL Eosinophils # (Auto) 0 0-0.8 10 ^3/uL Basophils # (Auto) 0 0-0.2 10 ^3/uL Nucleated Red Blood Cells 0.5 % Sodium Level 132 L 136-145 mmol/L Potassium Level 3.3 L 3.5-5.1 mmol/L Chloride Level 100 98-107 mmol/L Carbon Dioxide Level 20 20-31 mmol/L Anion Gap 12 5-15 Blood Urea Nitrogen 26 H 9-23 mg/dL Creatinine 0.86 0.700-1.30 mg/dL Glomerular Filtration Rate Calc 94 >90 mL/min BUN/Creatinine Ratio 30.2 H 10.0-20.0 Serum Glucose 255 H 74-106 mg/dL Calcium Level 8.7 8.7-10.4 mg/dL Total Bilirubin < 0.2 L 0.2-1.0 mg/dL Aspartate Amino Transferase (AST) 16 13-40 U/L Alanine Aminotransferase (ALT) 17 7-40 U/L Alkaline Phosphatase 174 H 46-116 U/L Total Protein 7.2 5.7-8.2 g/dL Albumin 3.4 3.2-4.8 g/dL Lipase 22 12-53 U/L TECHNIQUE: CT of the abdomen and pelvis was performed with IV contrast. FINDINGS: Abdomen/Pelvis: The spleen, pancreas, adrenal glands, kidneys, gallbladder, liver, bladder, and prostate gland are unremarkable. The abdominal aorta is normal in course and caliber. There are moderate atherosclerotic calcifications. There are a few foci of free intraperitoneal air adjacent to the liver and along the falciform ligament. There is a small amount of ascites in the peritoneal cavity. There is trace hyperdense material layering within ascites within the deep pelvis. There is ulceration lung the medial margin of the stomach measuring 2.5 x 1.4 cm. This is best seen on images 27-39 series 2. There is diffuse gastric fold thickening. There is no enlarged abdominal or pelvic lymph node. There is a very large left inguinal hernia containing ascitic fluid and loops of nonobstructed small bowel. Other: The imaged lower thorax demonstrates 3-vessel coronary artery calcifications. There are centrilobular emphysematous change. No acute osseous abnormality is evident. There is a partially imaged right medial thigh intramuscular lipomatous lesion measuring at least 3.6 cm. IMPRESSION: Findings compatible with perforated bowel with ruptured stomach ulcer as suspected cause. Large left inguinal hernia containing ascitic fluid and loops of nonobstructed small bowel. Partially imaged 3.6 cm intramuscular lipomatous lesion within the right medial thigh musculature. 3-vessel coronary artery calcifications. Centrilobular emphysema. CHEST RADIOGRAPH FINDINGS: Lines and Tubes: Appears to be bandaging or brace traversing the chest correlate clinically Lungs: No focal consolidation. Pleura: No effusion. No pneumothorax. Cardiomediastinal contours: Unremarkable Bones: Elevation of the left shoulder. May be positional. IMPRESSION: 1. No acute cardiopulmonary disease. 2. Elevation of the left shoulder 3. Questionable bandaging or brace traversing chest. 4. Can not exclude pneumoperitoneum if possibility of is of clinical concern recommend CT abdomen and pelvis. SEPSIS Sepsis Screen Date sepsis recognized/suspect: Mar 15, 2025 Time Sepsis recognized/suspect: 1119 Recent Procedure: No On Antibiotic Therapy: No Respiratory Rate >20: Yes Heart Rate >90: No Temp<36 C (96.8 F) or >38.3 C: No SBP <90 or MAP <65 mmHG: No New Acute Mental Status Change: No Is the patient on CPAP, BIPAP,: No Physician Orders Chest Portable (03/15/25 12:17) Ct Ab Pel With Iv Con Only (03/15/25 12:17) Blood Culture (03/15/25 12:17) Ng/Orogastric Tube To Lis (03/15/25 15:39) * Surgical Consult (03/15/25 ) Admit (03/15/25 16:12) Code Status (03/15/25 16:12) Ondansetron Hcl (Zofran) (03/15/25 16:15) Npo (Nothing By Mouth) Diet (03/15/25 Dinner) Condition: Critical (03/15/25 16:12) Hydromorphone Injection (Dilaudid Inject (03/15/25 16:15) Lorazepam 2mg/Ml Inj (Ativan Inj) (03/15/25 16:15) Vital Signs Date Time Temp Pulse Resp B/P (MAP) Pulse Ox O2 Delivery O2 Flow Rate FiO2 03/15/25 15:00 92 21 123/74 (90) 98 03/15/25 14:00 97.1 92 21 104/66 (79) 98 97.1 03/15/25 13:45 90 26 104/66 03/15/25 13:29 91 26 110/71 03/15/25 13:00 97.0 85 21 110/71 (84) 98 97.0 03/15/25 12:31 91 26 107/73 03/15/25 12:00 97.9 87 21 107/73 (84) 98 97.9 03/15/25 11:20 87 26 98 Room Air* 0 21 03/15/25 11:20 97.9 87 26 98/66 (77) 98 97.9 03/15/25 11:13 97.9 86 20 117/80 98 97.9 Laboratory Tests Test 03/15/25 12:47 03/15/25 14:44 Lactic Acid Level 3.6 mmol/L (0.4-2.0) *H 3.7 mmol/L (0.4-2.0) *H White Blood Count 3.1 10^3/uL (4.4-10.8) L Medications Medications Dose Ordered Sig/Celia Route Start Time Stop Time Status Last Admin Dose Admin Cefazolin Sodium/ Dextrose 50 ml @ 50 mls/hr ONCE ONCE IV 03/15/25 13:45 03/15/25 14:44 DC 03/15/25 13:45 50 MLS/HR Hydromorphone HCl 1 mg ONCE ONCE IV 03/15/25 12:30 03/15/25 12:31 DC 03/15/25 12:31 1 MG Hydromorphone HCl 1 mg ONCE ONCE IV 03/15/25 13:00 03/15/25 13:01 DC 03/15/25 13:29 1 MG Hydromorphone HCl 1 mg ONCE ONCE IV 03/15/25 13:45 03/15/25 13:57 DC 03/15/25 13:45 1 MG Metronidazole 100 ml @ 100 mls/hr ONCE ONCE IV 03/15/25 13:45 03/15/25 14:44 DC 03/15/25 13:45 100 MLS/HR Ondansetron HCl 4 mg ONCE ONCE IV 03/15/25 12:30 03/15/25 12:31 DC 03/15/25 12:31 4 MG Ondansetron HCl 4 mg ONCE ONCE IV 03/15/25 13:45 03/15/25 13:58 DC 03/15/25 13:45 4 MG Sodium Chloride 1,000 ml @ 1,000 mls/hr Q1H ONCE IV 03/15/25 12:30 03/15/25 13:29 DC 03/15/25 12:31 1,000 MLS/HR Sodium Chloride 2,350 ml @ 2,350 mls/hr ONCE ONCE IV 03/15/25 13:45 03/15/25 14:44 DC 03/15/25 14:08 2,350 MLS/HR Assessment/Plan Assessment/Plan Assessment: Perforated bowel, Stage 4 lung and throat cancer, Diabetes, Hypertension, Plan: Admit to Med-Surg, DNR, Comfort care only, Anxiety medication Q1 hour, Pain medications Q 1 hour, Plan discussed with: Patient My Orders Orders - DEANDRA CÁRDENAS Procedure Category Date Status Time Admit ADMIT 03/15/25 Verified 16:12 Code Status CODE 03/15/25 Verified 16:12 Ondansetron Hcl PHA 03/15/25 Verified (Zofran) 16:15 Npo (Nothing By DIET 03/15/25 Verified Mouth) Diet Dinner Condition: Critical ROSAS 03/15/25 Verified 16:12 Hydromorphone PHA 03/15/25 Verified Injection (Dilaudid 16:15 Lorazepam 2mg/Ml Inj PHA 03/15/25 Verified (Ativan Inj) 16:15 Date of Service: Mar 15, 2025 Billing Provider: DEANDRA CÁRDENAS Common Visit Codes: [id number] INP/OBS CARE (HIGH) DEANDRA CÁRDENAS Mar 15, 2025 16:36
[2025-03-15] MEDS: HYDROmorphone HCL 2 MG/ML VL/or syr IV PRN (17:22)
[2025-03-15 20:17] VITALS: PULSE 89; RESP 16; O2SAT 93
[2025-03-15 21:00] VITALS: BP 112/76; PULSE 88; RESP 20; TEMP 97; O2SAT 89
[2025-03-16 01:00] VITALS: BP 107/64; PULSE 96; RESP 20; TEMP 97; O2SAT 97
[2025-03-16 05:00] VITALS: BP 59/36; PULSE 89; RESP 20; TEMP 97; O2SAT 85
--- NOTE | 2025-03-16 13:17 | DVHDS2 ---
Discharge Summary Date of Admission Mar 15, 2025 at 16:12 Date of Discharge: Mar 16, 2025 Admitting Diagnosis Perforated bowel/stomach Labs/Diagnostic Data: Laboratory Results Test 03/15/25 14:44 03/15/25 12:47 Lactic Acid Level 3.7 mmol/L (0.4-2.0) White Blood Count 3.1 10^3/uL (4.4-10.8) Red Blood Count 4.39 10^6/uL (4.5-5.90) Hemoglobin 10.2 g/dL (13.5-17.5) Hematocrit 33.9 % (41.0-53.0) Mean Corpuscular Volume 77.4 fL (80.0-100.0) Mean Corpuscular Hemoglobin 23.3 pg (28.0-32.0) Mean Corpuscular Hemoglobin Concent 30.1 g/dL (32.0-36.0) Red Cell Distribution Width 19.0 % (11.8-14.3) Platelet Count 321 10^3/uL (140-450) Mean Platelet Volume 7.6 fL (6.9-10.8) Neutrophils (%) (Auto) 64.6 % (37.0-80.0) Lymphocytes (%) (Auto) 23.7 % (10.0-50.0) Monocytes (%) (Auto) 11.3 % (0.0-12.0) Eosinophils (%) (Auto) 0.2 % (0.0-7.0) Basophils (%) (Auto) 0.2 % (0.0-2.0) Neutrophils # (Auto) 2.0 10 ^3/uL (1.6-8.6) Lymphocytes # (Auto) 0.7 10 ^3/uL (0.4-5.4) Monocytes # (Auto) 0.4 10 ^3/uL (0-1.3) Eosinophils # (Auto) 0 10 ^3/uL (0-0.8) Basophils # (Auto) 0 10 ^3/uL (0-0.2) Nucleated Red Blood Cells 0.5 % Sodium Level 132 mmol/L (136-145) Potassium Level 3.3 mmol/L (3.5-5.1) Chloride Level 100 mmol/L (98-107) Carbon Dioxide Level 20 mmol/L (20-31) Anion Gap 12 (5-15) Blood Urea Nitrogen 26 mg/dL (9-23) Creatinine 0.86 mg/dL (0.700-1.30) Glomerular Filtration Rate Calc 94 mL/min (>90) BUN/Creatinine Ratio 30.2 (10.0-20.0) Serum Glucose 255 mg/dL (74-106) Calcium Level 8.7 mg/dL (8.7-10.4) Total Bilirubin < 0.2 mg/dL (0.2-1.0) Aspartate Amino Transferase (AST) 16 U/L (13-40) Alanine Aminotransferase (ALT) 17 U/L (7-40) Alkaline Phosphatase 174 U/L (46-116) Total Protein 7.2 g/dL (5.7-8.2) Albumin 3.4 g/dL (3.2-4.8) Lipase 22 U/L (12-53) Other Laboratory Tests 03/15/25 12:47 Brief Hx & Hospital Course: Avery Valles is a 69-year-old male with past medical history of hypertension, hyperlipidemia, diabetes, and stage 4 throat and lung cancer, who came to the hospital for abdominal pain. Patient states his pain began last night. It continued to worsen throughout the night and morning prompting him to come to the hospital. CT of abdomen showed perforated stomach. Surgical consult was initiated by ER provider. Upon my arrival to bedside Dr. Syed was at the bedside speaking with the patient regarding risk of surgery and POC. Patient has chosen to be made comfort care and we agreed with that. Patient will be made a DNR and given comfort medications. Was paged at [phone] to be informed that the patient was no longer breathing and has no pulse, to pronounce. 0710 at bedside. No pulse, no respirations, no pupillary reaction, patient pronounced. Condition at Discharge: Undetermined Final Diagnosis/Problems List Perforated bowel/stomach, stage 4 cancer Discharge Disposition: at Hospital ASSESSMENT ASSESSMENT Assessment Date of Service: Mar 16, 2025 Billing Provider: DEANDRA CÁRDENAS Common Visit Codes: [id number] INP/OBS CARE (MOD) DEANDRA CÁRDENAS Mar 16, 2025 13:17
== END 2025-03-16 09:09 | DRG 395 ==
LOC: EDBD 11:03 → ER 11:03 → OVERFLOW 16:12 → EAST 20:15
PROVIDERS: ADMIT Nurse Practitioner Acute Care; ATTEND Nurse Practitioner Acute Care
DX: K63.1 Perforation of intestine (nontraumatic) (principal); E11.9 Type 2 diabetes mellitus without complications; E78.5 Hyperlipidemia, unspecified; F17.210 Nicotine dependence, cigarettes, uncomplicated; I10 Essential (primary) hypertension; Z66 Do not resuscitate; Z51.5 Encounter for palliative care; Z85.819 Personal history of malignant neoplasm of unspecified site of lip, oral cavity, and pharynx; Z85.118 Personal history of other malignant neoplasm of bronchus and lung
CPT/HCPCS: 36415; 71045; 74177; 80053; 83605; 83690; 85025; 87040; 96361; 96365; 96375; 96376; G0378; J2405; J3490